=== PATIENT | female | born 1980 | race Caucasian/White ===

== ENCOUNTER → 2025-06-21 11:16 | Outpatient (REF) | payer BC, SELFPAY | LOC: PNTC 11:16 | PROVIDERS: ATTENDING PHYSICIAN Obstetrics & Gynecology | DX: O09.521 Supervision of elderly multigravida, first trimester (principal); O36.4XX0 Maternal care for intrauterine death, not applicable or unspecified | CPT/HCPCS: 76815; 76817 ==

== ENCOUNTER → 2025-08-06 12:44 | Outpatient (REF) | payer BC, SELFPAY | LOC: RCS 12:44 | PROVIDERS: ATTENDING PHYSICIAN Nurse Practitioner Family | DX: R00.2 Palpitations (principal) | CPT/HCPCS: 93225; 93226 ==